=== PATIENT | male | born 1980 | race Two or more races ===

== ENCOUNTER 2023-12-23 02:38 | Emergency (ER) | payer MEDICARE, SELFPAY ==
[2023-12-23 02:39] VITALS: BMI 22.3
--- NOTE | 2023-12-23 02:45 | PC.NURSE ---
CALLED PT IN ER LOBBY TO BE SEEN BY PROVIDER AND NO ANSWER.
--- NOTE | 2023-12-23 03:00 | PC.NURSE ---
CALLED PT IN ER LOBBY TO BE SEEN BY PROVIDER AND NO ANSWER.
--- NOTE | 2023-12-23 03:16 | PC.NURSE ---
CALLED PT IN ER LOBBY TO BE SEEN BY PROVIDER AND NO ANSWER.
== END 2023-12-23 03:24 | disposition left against medical advice (07) ==
LOC: SERX 05:27
PROVIDERS: Emergency Provider Emergency Medicine
DX: Z53.21 Procedure and treatment not carried out due to patient leaving prior to being seen by health care provider (principal)

== ENCOUNTER 2024-03-20 21:18 | Emergency (ER) | payer MEDICARE, SELFPAY ==
[2024-03-20 21:33] VITALS: BP 132/87; PULSE 109; RESP 18; TEMP 37.3; O2SAT 98
--- NOTE | 2024-03-20 21:39 | PD.EDMEDCL ---
ED Medical Clearance RME/HPI General Chief complaint: Medical Clearance Stated complaint: LONG TERM CLEARANCE Time Seen by Provider: 03/20/24 21:36 Source: patient and police Arrival date/time: 03/20/24 21:18 43-year-old male BIB PPD with past medical history of hypertension presents emergency department for correction clearance due to elevated blood pressure of 198/89. Patient's blood pressure is 132/89 patient denies any dizziness, headache, chest pain, nausea vomiting, or any other associated symptom. Patient GCS 15 and is cooperative. Mode of arrival: ambulatory Limitations: no limitations Related Information Previous Rx's ?Medication ?Instructions ?Recorded hydrochlorothiazide 25 mg tablet 25 mg PO QDAY #30 tabs 08/20/22 lisinopril 10 mg tablet 10 mg PO QDAY #30 tabs 08/20/22 Allergies Allergy/AdvReac Type Severity Reaction Status Date / Time ziprasidone [From [place]deep[place]] Allergy Verified 08/20/22 14:30 Review of Systems Review of Systems Systems Reviewed: All systems reviewed, normal except as documented Constitutional Constitutional: Reports system reviewed and no additional complaints, except as documented, Denies body ache(s), Denies chills and Denies fever(s) Eyes Eyes: Reports system reviewed and no additional complaints, except as documented and Denies change in vision ENT Ears, Nose, Mouth, and Throat: Reports system reviewed and no additional complaints, except as documented, Denies disequilibrium, Denies dizziness, Denies sore throat and Denies vertigo Cardiovascular Cardiovascular: Reports system reviewed and no additional complaints, except as documented, Denies chest pain and Denies dyspnea Respiratory Respiratory: Reports system reviewed and no additional complaints, except as documented, Denies chest congestion, Denies cough and Denies dyspnea Gastrointestinal Gastrointestinal: Reports system reviewed and no additional complaints, except as documented, Denies abdominal pain, Denies nausea and Denies vomiting Musculoskeletal Musculoskeletal: Reports system reviewed and no additional complaints, except as documented, Denies abnormal gait and Denies arthralgias Integumentary/Breasts Skin/Breast: Reports system reviewed and no additional complaints, except as documented, Denies erythema, Denies rash and Denies wounds Neurologic Neurologic: Reports system reviewed and no additional complaints, except as documented, Denies abnormal gait, Denies disequilibrium, Denies dizziness and Denies vertigo Past Medical History Social History SMOKING STATUS: Never smoker ED Exam General Limitations: Present no limitations General appearance: Present alert and in no apparent distress Head Head exam: Present atraumatic Eye Eye exam: Present normal appearance, PERRL and EOMI ENT ENT exam: Present normal exam, normal oropharynx and mucous membranes moist Neck Neck exam: Present normal inspection, full ROM and trachea midline Chest Chest inspection: Present normal inspection and symmetric chest wall rise Respiratory Respiratory exam: Present normal lung sounds bilaterally Cardiovascular Cardiovascular exam: Present regular rate, normal rhythm and normal heart sounds Abdominal Exam Abdominal exam: Present soft and normal bowel sounds Extremities Exam Extremities exam: Present normal inspection and full ROM Back Exam Back exam: Present normal inspection and full ROM Neurological Exam Neurological exam: Present alert, oriented X3 and CN II-XII intact Psychiatric Psychiatric exam: Present normal affect and normal mood Skin Skin exam: Present warm, dry, intact and normal color Course Quality Measures none Vital Signs Vital signs: Vital Signs Temperature 99.2 F 03/20/24 21:33 Pulse Rate 109 H 03/20/24 21:33 Respiratory Rate 18 03/20/24 21:33 Blood Pressure 132/87 H 03/20/24 21:33 Pulse Oximetry (%) 98 03/20/24 21:33 Oxygen Delivery Method Room Air 03/20/24 21:33 98% room air within normal limits Medical Clearance MDM Narrative MDM Narrative:: 43-year-old male BIB PPD with past medical history of hypertension presents emergency department for correction clearance due to elevated blood pressure of 198/89. Patient's blood pressure is 132/89 patient denies any dizziness, headache, chest pain, nausea vomiting, or any other associated symptom. Patient GCS 15 and is cooperative. Patient appears nontoxic and is hemodynamic stable. No adventitious lung sounds on auscultation. Patient reports past medical history hypertension normally on medication but has been abusing recreational drugs. Patient calm and cooperative. Patient denies any complaints stable for discharge. Patient data External records reviewed:: [facility] previous records Clinical information provided by:: patient and law enforcement Social determinants that could affect healthcare access:: substance use Patient has the following chronic illnesses:: See chart How is presenting disease/condition affected by chronic disease/condition?: exacerbated by Evaluation data The following diagnostics were reviewed and interpreted by me:: other (specify) (N/A) Lab and/or radiology exams considered but not ordered:: N/A Interpretation Summary: N/A Medications / Prescriptions Medications or Prescriptions considered but not ordered:: N/A Medication administrations:: N/A Consultations Consultation(s) initiated? (list below): No Diagnosis Medical Clearance Differential Diagnosis: other (Hypertensive crisis) Most likely diagnosis given after review of the tests above:: Medical clearance for incarceration Admission Indicated Admission indicated?: not indicated Admission Request Was there a request for admission?: No Disposition Plan Disposition Plan: Discharge Discharge Attestation Discharge Attestation: The patient and all family members were given an opportunity to ask questions and understood the discharge instructions. Discharge instructions specifically effects, indications for sooner follow up or return to the emergency department, and the expected course of current diagnosis. Patient condition: Stable Discharge Plan Plan Patient Disposition: HOME (Self Care) Disposition Comment: Stable Prescriptions/Referrals Prescriptions/Med Rec: No Action lisinopril 10 mg tablet 10 mg PO QDAY Qty: 30 0RF hydrochlorothiazide 25 mg tablet 25 mg PO QDAY Qty: 30 0RF Referrals: No Primary/Family,Physician [Primary Care Provider] - In 1 week Problem List Clinical Impression: Medical clearance for incarceration Patient/Caregiver Discharge Instructions Discharge Activity: activity as tolerated Education Materials: DASH Plan Eat Heart Healthy Food, ED Hypertension, Established Additional Instructions: Take your blood pressure medications as prescribed. Follow-up with primary care provider in 2 to 3 days. Return to emergency department for any worsening symptoms or as needed Print Language: Dominican Stand Alone Forms: Monique Award Info., Patient Portal Info Letter PA/[employer] SUPERVISOR Supervising Physician PA/[employer] SUPERVISOR Supervising Physician: Dr. Odonnell
== END 2024-03-20 21:52 ==
PROVIDERS: Emergency Provider Emergency Medicine
DX: Z02.89 Encounter for other administrative examinations (principal); I10 Essential (primary) hypertension
CPT/HCPCS: 99281

== ENCOUNTER 2024-07-03 12:09 | Emergency (ER) | payer MEDICARE, SELFPAY ==
[2024-07-03 12:16] VITALS: BP 171/126; PULSE 127; RESP 18; TEMP 37.1; O2SAT 95; BMI 23.6
--- NOTE | 2024-07-03 12:21 | PD.EDMEDCL ---
ED Medical Clearance RME/HPI General Chief complaint: Medical Clearance Stated complaint: LONGTERM CHECK Time Seen by Provider: 07/03/24 12:20 Arrival date/time: 07/03/24 12:09 CC: Medical clearance patient returns to the emergency room for second time for medical clearance of heart rate greater than 130 blood pressure at 171/126. Patient currently has no complaints he is under arrest escorted by PD admits to controlled substance abuse suspicion for methamphetamines. Related Information Previous Rx's ?Medication ?Instructions ?Recorded hydrochlorothiazide 25 mg tablet 25 mg PO QDAY #30 tabs 08/20/22 lisinopril 10 mg tablet 10 mg PO QDAY #30 tabs 08/20/22 Allergies Allergy/AdvReac Type Severity Reaction Status Date / Time ziprasidone (From Gurdeepc[place]) Allergy Verified 08/20/22 14:30 Review of Systems Review of Systems Narrative Review of Systems: GEN: No fever, no chills, no weight loss EYES: No discharge, no visual changes, no pain HEENT: No ear pain, no congestion, no sore throat PULM: No shortness of breath, no cough, no congestion CV: No chest pain, no dyspnea on exertion, no palpitations GI: No nausea, no vomiting, no diarrhea, no pain, no constipation : No frequency, no urgency, no dysuria MUSC/SKEL: No joint pain, no back pain SKIN: No rash PSYCH: No hallucinations, no depression HEME/LYMPH: No easy bleeding or bruising tendencies NEURO: No weakness, no headache Past Medical History Past Medical History CARDIAC: Positive Hypertension; Negative Congestive Heart Failure RESPIRATORY: Negative Chronic Obstructive Pulmonary Disease (COPD) GENITOURINARY: Negative Renal Disease ENDOCRINE: Negative Diabetes Mellitus Type 1 or Diabetes Mellitus Type 2 PSYCHO/SOCIAL: Positive Bipolar Disorder Social History SMOKING STATUS: Current some day smoker ED Exam Narrative Physical exam: [General: Appears not in any acute distress Head normocephalic HEENT: Within acceptable limits Neck is supple nontender Chest equal chest rise nontender to palpation Respiratory: Clear to auscultation no wheezes crackles or rubs CV: Rate rhythm is regular, tachycardic, no murmurs rubs or clicks Abdomen is flat, soft nontender no masses positive bowel sounds all 4 quadrants Back: No CVA tenderness no spinous process tenderness from cervical spine thoracic and lumbar spine Skin: Intact no petechiae rash induration ulceration or crepitus Extremities: Moving all extremity against resistance cap refill less than 2 seconds neurosensory intact Neuro: Awake alert oriented x3 Glascow coma 15 no focal deficits] Course Quality Measures none Orders Category Date Time Status Diazepam Inj [Valium Inj] Med 07/03/24 12:20 Discontinued 10 mg IM X1 ONE cloNIDine HCL [Catapres] Med 07/03/24 12:22 Discontinued 0.2 mg PO X1 ONE cloNIDine HCL [Catapres] Med 07/03/24 13:55 Discontinued 0.2 mg PO X1 ONE Vital Signs Vital signs: Vital Signs Temperature 98.7 F 07/03/24 12:16 Pulse Rate 127 H 07/03/24 12:16 Respiratory Rate 18 07/03/24 12:16 Blood Pressure 171/126 H 07/03/24 12:16 Pulse Oximetry (%) 95 07/03/24 12:16 Oxygen Delivery Method Room Air 07/03/24 12:16 Medical Clearance Patient data External records reviewed:: [facility] previous records Clinical information provided by:: patient and law enforcement Social determinants that could affect healthcare access:: substance use Patient has the following chronic illnesses:: Substance abuse How is presenting disease/condition affected by chronic disease/condition?: exacerbated by Evaluation data The following diagnostics were reviewed and interpreted by me:: other (specify) (None) Lab and/or radiology exams considered but not ordered:: None Interpretation Summary: Addressing hypertension and tachycardia. Medications / Prescriptions Medications or Prescriptions considered but not ordered:: None Medication administrations:: Medication Administration History Discontinued Medications Clonidine (Clonidine Hcl 0.1 Mg Tablet) 0.2 mg PO X1 ONE Stop: 07/03/24 12:23 Last Admin: 07/03/24 12:28 Dose: 0.2 mg Documented By: GLORIA Clonidine (Clonidine Hcl 0.1 Mg Tablet) 0.2 mg PO X1 ONE Stop: 07/03/24 13:56 Diazepam (Diazepam Inj 5 Mg/Ml Vial 2 Ml) 10 mg IM X1 ONE Stop: 07/03/24 12:21 Last Admin: 07/03/24 12:29 Dose: 10 mg Documented By: GLORIA None Consultations Consultation(s) initiated? (list below): No Diagnosis Medical Clearance Differential Diagnosis: other (Hypertension, hypertensive urgency hypertensive emergency) Most likely diagnosis given after review of the tests above:: Hypertension, tachycardia, clearance Admission Indicated Admission indicated?: not indicated Admission Request Was there a request for admission?: No Disposition Plan Disposition Plan: Discharge Discharge Attestation Discharge Attestation: The patient and all family members were given an opportunity to ask questions and understood the discharge instructions. Discharge instructions specifically effects, indications for sooner follow up or return to the emergency department, and the expected course of current diagnosis. Patient condition: Stable Discharge Plan Plan Patient Disposition: Correction/Court/Law Patient condition on transfer: Stable Prescriptions/Referrals Prescriptions/Med Rec: No Action lisinopril 10 mg tablet 10 mg PO QDAY Qty: 30 0RF hydrochlorothiazide 25 mg tablet 25 mg PO QDAY Qty: 30 0RF Referrals: Ida Rendon MD [Primary Care Provider] - In 1 week Problem List Clinical Impression: Medical clearance for incarceration, Hypertension, Tachycardia Patient/Caregiver Discharge Instructions Print Language: Turkish PA/VARNISH MELTER Supervising Physician PA/VARNISH MELTER Supervising Physician: Mikey Marroquin ENP
[2024-07-03 12:28] VITALS: BP 171/126; PULSE 136
[2024-07-03] MEDS: cloNIDine HCL 0.1 MG TABLET 0.2 MG PO (12:28)
[2024-07-03] MEDS: DIAZEPAM INJ 5 MG/ML VIAL 2 ML 10 MG IM (12:29)
[2024-07-03 13:34] VITALS: BP 165/101; PULSE 117; RESP 16; O2SAT 97
[2024-07-03 14:06] VITALS: BP 141/80; PULSE 127
[2024-07-03 14:14] VITALS: BP 141/80; PULSE 117; RESP 16; O2SAT 95
== END 2024-07-03 14:24 ==
PROVIDERS: Emergency Provider Emergency Medicine; PCP Family Medicine
DX: Z02.89 Encounter for other administrative examinations (principal); I10 Essential (primary) hypertension; R00.0 Tachycardia, unspecified
CPT/HCPCS: 96372; 99283; J3360; A9270